=== PATIENT | female | born 1965 | race American Indian/Alaskan Native ===

== ENCOUNTER 2019-06-17 19:52 | Observation (INO) | payer MEDICAID ==
--- NOTE | 2019-06-17 21:39 | Event Note ---
ED Screening Note Date of service: 06/17/19 Time: 21:34 ED Screening Note: This is a 54 y.o. F. that presents to the ER with muscle aches and palpitations for 2 weeks. PMH of DM2, HTN, CHF, Afib, and asthma. States medtronic loop monitor went off today. Reports palpitations resolved. Denies chest pain, edema, SOB, wheezing, fever, or chills. This initial assessment/diagnostic orders/clinical plan/treatment(s) is/are subject to change based on patients health status, clinical progression and re- assessment by fellow clinical providers in the ED. Further treatment and workup at subsequent clinical providers discretion. Patient/guardian urged not to elope from the ED as their condition may be serious if not clinically assessed and managed. Initial orders include: Labs
[2019-06-17 22:27] LABS: Basophils # (Auto) 0.1 K/mm3 (0.0-0.1); Basophils % (Auto) 0.9 % (0.0-1.8); Eosinophils # (Auto) 0.3 K/mm3 (0.0-0.4); Hematocrit 32.8 % (30.3-42.9); Hemoglobin 10.8 gm/dl (10.1-14.3); Lymphocytes # (Auto) 2.9 K/mm3 (1.2-5.4); Lymphocytes % (Auto) 24.9 % (13.4-35.0); Mean Corpuscular HGB Conc 33 % (30-34); Mean Corpuscular Volume 77 fl (79-97); Monocytes # (Auto) 0.7 K/mm3 (0.0-0.8); Monocytes % (Auto) 5.8 % (0.0-7.3); Platelet Count 345 K/mm3 (140-440); Red Blood Count 4.28 M/mm3 (3.65-5.03)
[2019-06-17 22:33] LABS: BUN/Creatinine Ratio 16; Blood Urea Nitrogen 14 mg/dL (7-17); Calcium 6.8 mg/dL (8.4-10.2); Hemolysis Index 16
[2019-06-17] MEDS ORDERED: CALCIUM GLUCONATE 1,000 MG in SODIUM CHLORIDE 0.9% 100 ML IV ONE (23:01)
--- NOTE | 2019-06-17 23:05 | Emergency Department Report ---
ED General Adult HPI - General Chief complaint: Arrhythmia/Palpitations Stated complaint: CRAMPING BODY Time Seen by Provider: 06/17/19 21:34 Source: patient Mode of arrival: Ambulatory Limitations: No Limitations - History of Present Illness Initial comments: Generalized body cramps. Hx of thyroidectomy and hypocalcemia. Reports symptoms feel similar. Reports hx of a. fib and on xarelto. Reports compliant with medications. Reports hx hospitalization for hypocalcemia. - Related Data Home Medications Medication Instructions Recorded Confirmed Last Taken Loratadine (Nf) [Claritin (Nf)] 10 mg PO DAILY 10/24/14 10/24/14 10/24/14 Previous Rx's Medication Instructions Recorded Last Taken Type Bisacodyl [Dulcolax suppos] 10 mg NE QDAY PRN #20 supp.rect 10/27/14 Unknown Rx Ciprofloxacin HCl [Cipro] 500 mg PO Q12H #14 tab 10/27/14 Unknown Rx Docusate Sodium [Colace] 100 mg PO BID PRN #60 capsule 10/27/14 Unknown Rx Fluticasone [Flonase] 2 spray NS BID PRN #1 bottle 10/27/14 Unknown Rx Fluticasone/Salmeterol [Advair 1 puff IH BID #1 disk.w.dev 10/27/14 Unknown Rx Diskus 500-50 mcg] Furosemide [Lasix TAB] 80 mg PO DAILY #30 tablet 10/27/14 Unknown Rx Gabapentin 100 mg PO Q8HR #90 capsule 10/27/14 Unknown Rx HYDROcodone/APAP 10-325 [[place] 1 each PO Q6HR PRN #30 tablet 10/27/14 Unknown Rx 10/325] Ipratropium Carson [Atrovent Hfa] 12.9 gm IH Q6H PRN #1 hfa.aer.ad 10/27/14 Unknown Rx Lisinopril [Zestril TAB] 10 mg PO QDAY #30 tablet 10/27/14 Unknown Rx Methimazole [Tapazole] 10 mg PO DAILY #30 tablet 10/27/14 Unknown Rx Montelukast Sodium [Singulair] 10 mg PO DAILY #30 tablet 10/27/14 Unknown Rx Polyethylene Glycol 3350 [Miralax 17 gm PO BID PRN #30 powd.pack 10/27/14 Unknown Rx 3350] Prednisone [predniSONE 10 mg 10 mg PO .TAPER #1 tab.ds.pk 10/27/14 Unknown Rx (6-Day Pack, 21 Tabs)] carvediloL [Coreg] 3.125 mg PO BID #60 tablet 10/27/14 Unknown Rx Allergies Allergy/AdvReac Type Severity Reaction Status Date / Time aspirin Allergy Anaphylaxis Verified 10/24/14 17:21 cephalexin monohydrate Allergy Anaphylaxis Verified 10/24/14 17:21 [From Keflex] Fish Containing Products Allergy Anaphylaxis Verified 10/24/14 17:21 insulin detemir Allergy Rash Verified 06/17/19 19:55 [From Levemir U-100 Insulin] Penicillins Allergy Anaphylaxis Verified 10/24/14 17:21 ED Review of Systems ROS: Stated complaint: CRAMPING BODY Other details as noted in HPI Other: GENERAL: No weight change, fatigue, fever, chills, or night sweats SKIN: No changes in skin or hair, no itching, no rashes, no jaundice HEAD: No trauma EYES: No blurriness, tearing, itching, acute visual loss, conjunctival di scoloration, or scleral icterus EARS: No hearing loss, tinnitus, vertigo, or earache NOSE: No rhinorrhea, stuffiness, sneezing, itching, or epistaxis MOUTH: No bleeding gums, hoarseness, sore throat, or swelling CARDIAC: Palpitations. No new murmur, chest pain, dyspnea on exertion, orthopnea, PND, or edema RESPIRATORY: No shortness of breath, wheeze, cough, sputum production, hemoptysis GI: No abdominal pain, nausea, vomiting, dysphagia, diarrhea, constipation, hematemesis, melena, hematochezia URINARY: No frequency, urgency, polyuria, dysuria, hematuria, or incontinence MUSCULOSKELETAL: Generalized body cramps intermittent. No muscle weakness, joint stiffness, decrease in range of motion, redness, swelling NEUROLOGIC: No headache, syncope, loss of sensation, numbness, tingling, tremor s, weakness, paralysis, seizures HEMATOLOGIC: No anemia, easy bruising, bleeding, petechiae, or purpura ENDOCRINE: No hot or cold intolerance, sweating, polyuria, polydipsia or, polyphagia no thyroid problems PSYCHIATRIC: No change in mood, no anxiety, no depression ED Past Medical Hx - Past Medical History Previous Medical History?: Yes Hx Hypertension: Yes Hx Congestive Heart Failure: Yes (HISTORY) Hx Diabetes: Yes Hx Asthma: Yes Hx COPD: No Additional medical history: graves disease, Obesity, A-Fib - Surgical History Past Surgical History?: Yes Additional Surgical History: x 4, Thyroidectomy, EMILY MONITOR, Hysterectomy - Social History Smoking Status: Never Smoker Substance Use Type: None - Medications Home Medications: Home Medications Medication Instructions Recorded Confirmed Last Taken Type Loratadine (Nf) [Claritin (Nf)] 10 mg PO DAILY 10/24/14 10/24/14 10/24/14 History Bisacodyl [Dulcolax suppos] 10 mg NE QDAY PRN #20 supp.rect 10/27/14 Unknown Rx Ciprofloxacin HCl [Cipro] 500 mg PO Q12H #14 tab 10/27/14 Unknown Rx Docusate Sodium [Colace] 100 mg PO BID PRN #60 capsule 10/27/14 Unknown Rx Fluticasone [Flonase] 2 spray NS BID PRN #1 bottle 10/27/14 Unknown Rx Fluticasone/Salmeterol [Advair 1 puff IH BID #1 disk.w.dev 10/27/14 Unknown Rx Diskus 500-50 mcg] Furosemide [Lasix TAB] 80 mg PO DAILY #30 tablet 10/27/14 Unknown Rx Gabapentin 100 mg PO Q8HR #90 capsule 10/27/14 Unknown Rx HYDROcodone/APAP 10-325 [[place] 1 each PO Q6HR PRN #30 tablet 10/27/14 Unknown Rx 10/325] Ipratropium Carson [Atrovent Hfa] 12.9 gm IH Q6H PRN #1 hfa.aer.ad 10/27/14 Unknown Rx Lisinopril [Zestril TAB] 10 mg PO QDAY #30 tablet 10/27/14 Unknown Rx Methimazole [Tapazole] 10 mg PO DAILY #30 tablet 10/27/14 Unknown Rx Montelukast Sodium [Singulair] 10 mg PO DAILY #30 tablet 10/27/14 Unknown Rx Polyethylene Glycol 3350 [Miralax 17 gm PO BID PRN #30 powd.pack 10/27/14 Unknown Rx 3350] Prednisone [predniSONE 10 mg 10 mg PO .TAPER #1 tab.ds.pk 10/27/14 Unknown Rx (6-Day Pack, 21 Tabs)] carvediloL [Coreg] 3.125 mg PO BID #60 tablet 10/27/14 Unknown Rx ED Physical Exam - General Limitations: No Limitations - Other Other exam information: GENERAL: Patient in no acute distress HEAD: Normocephalic, atraumatic EYES: PERRLA, EOM intact, no scleral icterus, no conjunctival hemorrhage, visual higgins and acuity wnl NOSE: No tenderness, discharge, sinus tenderness MOUTH: No erythema, bleeding, exudate HEART: Regular rate and rhythm, no murmur, S1-S2 are auscultated, no edema, pulses are symmetric LUNGS: No respiratory distress. Bilateral breath sounds, No tachypnea, No retractions, No wheezing, rales, rhonchi ABDOMEN: Normal bowel sounds, abdomen soft, no tenderness, no rebound, no guarding, no distention, no masses, no CVA tenderness MUSCULOSKELETAL: Normal joint range of motion, no redness, no swelling, no tenderness NEUROLOGIC: GCS 15, Alert and Oriented x3, Cranial nerves intact, normal sensati on, normal strength, no cerebellar deficit, NIHSS 0 SKIN: Skin is warm and dry, no wounds, no rashes ED Course Vital Signs 06/17/19 06/17/19 06/17/19 20:06 22:31 22:36 Temperature 98.5 F Pulse Rate 85 83 Respiratory 16 16 20 Rate Blood Pressure 199/104 169/93 O2 Sat by Pulse 99 96 99 Oximetry ED Medical Decision Making - Lab Data Result diagrams: 06/17/19 21:47 06/17/19 21:47 Laboratory Results - last 24 hr 06/17/19 06/17/19 06/17/19 21:47 21:47 21:47 WBC 11.7 H RBC 4.28 Hgb 10.8 Hct 32.8 MCV 77 L MCH 25 L MCHC 33 RDW 16.0 H Plt Count 345 Lymph % (Auto) 24.9 Bandera % (Auto) 5.8 Eos % (Auto) 3.0 Baso % (Auto) 0.9 Lymph # 2.9 Bandera # 0.7 Eos # 0.3 Baso # 0.1 Seg Neutrophils % 65.4 Seg Neutrophils # 7.7 Sodium 139 Potassium 3.5 L Chloride 95.7 L Carbon Dioxide 26 Anion Gap 21 BUN 14 Creatinine 0.9 Estimated GFR > 60 BUN/Creatinine Ratio 16 Glucose 194 H Calcium 6.8 L Magnesium 1.70 - Medical Decision Making Patient comfortable. Plan admit for further evaluation. Hospitalist updated and accepts admission. Critical care attestation.: If time is entered above; I have spent that time in minutes in the direct care of this critically ill patient, excluding procedure time. ED Disposition Clinical Impression: Hypocalcemia Disposition: OP ADMIT IP TO THIS HOSP Is pt being admited?: Yes Condition: Stable Time of Disposition: 23:05
[2019-06-17] MEDS ORDERED: ACETAMINOPHEN 325 MG TAB PO PRN (23:37)
[2019-06-17] MEDS ORDERED: MORPHINE 2 MG/1 ML INJ IV PRN (23:37)
[2019-06-17] MEDS ORDERED: ONDANSETRON 4 MG/2 ML INJ IV PRN (23:37)
[2019-06-17] MEDS ORDERED: DEXTROSE 50% IN WATER (25GM) 50 ML SYRINGE IV PRN (23:37)
[2019-06-17] MEDS ORDERED: MAGNESIUM HYDROXIDE (MOM) ORAL LIQD UDC PO PRN (23:37)
[2019-06-17] MEDS ORDERED: SODIUM CHLORIDE 0.9% 1000 ML 1,000 ML IV SCH (23:45)
[2019-06-18] MEDS ORDERED: hydrALAZINE 20 MG/1 ML INJ IV PRN (01:14)
[2019-06-18] MEDS ORDERED: hydrALAZINE 20 MG/1 ML INJ IV ONE (01:15)
--- NOTE | 2019-06-18 02:12 | History and Physical Report ---
History of Present Illness Date of examination: 06/17/19 Date of admission: 06/17/19 23:37 Chief complaint: Muscle cramping Facial twitching History of present illness: 54-year-old female known history of hypertension, CHF, atrial fibrillation presented to the emergency room today complaining of muscle cramps. She has also had some twitching on her cheeks. She denies any headache or dizziness, no fever or chills, no nausea vomiting. Upon evaluation in the emergency room she was found to be hypocalcemic. She was given some IV calcium gluconate. Past History Past Medical History: atrial fib, hypertension, other (Grave's disease, obesity) Past Surgical History: , thyroidectomy, hysterectomy Social history: no significant social history Family history: no significant family history Medications and Allergies Allergies Allergy/AdvReac Type Severity Reaction Status Date / Time aspirin Allergy Anaphylaxis Verified 10/24/14 17:21 cephalexin monohydrate Allergy Anaphylaxis Verified 10/24/14 17:21 [From Keflex] Fish Containing Products Allergy Anaphylaxis Verified 10/24/14 17:21 insulin detemir Allergy Rash Verified 06/17/19 19:55 [From Levemir U-100 Insulin] Penicillins Allergy Anaphylaxis Verified 10/24/14 17:21 Home Medications Medication Instructions Recorded Confirmed Last Taken Type Fluticasone [Flonase] 2 spray NS BID PRN #1 bottle 10/27/14 06/18/19 Unknown Rx Montelukast Sodium [Singulair] 10 mg PO DAILY #30 tablet 10/27/14 06/18/19 Unknown Rx ALBUTEROL Inhaler (OR & NICU) 2 puff IH QID PRN 06/18/19 06/18/19 Unknown History [ProAir HFA Inhaler] Budesonide/Formoterol Fumarate 2 puff IH DAILY 06/18/19 06/18/19 Unknown History [Symbicort 160-4.5 Mcg Inhaler] Calcitriol [Rocaltrol] 1 mcg PO QDAY 06/18/19 06/18/19 Unknown History Cholecalciferol (Vitamin D3) 2,000 unit PO QDAY 06/18/19 06/18/19 Unknown History [Vitamin D3 2,000 UNIT CAP] Estradiol 0.5 mg PO DAILY 06/18/19 06/18/19 Unknown History Famotidine [Pepcid] 20 mg PO BID 06/18/19 06/18/19 Unknown History Fluticasone/Salmeterol [Advair 2 puff IH BID 06/18/19 06/18/19 Unknown History Diskus 500-50 mcg] Gabapentin 300 mg PO BID 06/18/19 06/18/19 Unknown History Insulin Glargine,Hum.rec.anlog 10 unit SQ DAILY 06/18/19 06/18/19 Unknown History [Lantus Solostar] Metoprolol Tartrate [Lopressor] 50 mg PO BID 06/18/19 06/18/19 Unknown History Potassium Chloride [K-Dur] 10 meq PO QDAY 06/18/19 06/18/19 Unknown History Rivaroxaban [Xarelto] 20 mg PO QDAY 06/18/19 06/18/19 Unknown History amLODIPine 10 mg PO BID 06/18/19 06/18/19 Unknown History hydrALAZINE [Apresoline TAB] 10 mg PO BID 06/18/19 06/18/19 Unknown History Active Meds: Active Medications Acetaminophen (Tylenol) 650 mg PO Q4H PRN PRN Reason: Pain MILD(1-3)/Fever >100.5/SAEZ Dextrose (D50w (25gm) Syringe) 50 ml IV Q30MIN PRN; Protocol PRN Reason: Hypoglycemia Hydralazine HCl (Apresoline) 10 mg IV Q4H PRN PRN Reason: Hypertension Sodium Chloride (Nacl 0.9% 1000 Ml) 1,000 mls @ 75 mls/hr IV DIRECT RICHI Magnesium Hydroxide (Milk Of Magnesia) 30 ml PO Q4H PRN PRN Reason: Constipation Morphine Sulfate (Morphine) 2 mg IV Q4H PRN PRN Reason: Pain, Moderate (4-6) Ondansetron HCl (Zofran) 4 mg IV Q8H PRN PRN Reason: Nausea And Vomiting Sodium Chloride (Sodium Chloride Flush Syringe 10 Ml) 10 ml IV BID RICHI Sodium Chloride (Sodium Chloride Flush Syringe 10 Ml) 10 ml IV PRN PRN PRN Reason: LINE FLUSH Review of Systems Musculoskeletal: muscle cramps Neurological: tingling Exam - Constitutional Vitals: Temp Pulse Resp BP Pulse Ox 98.5 F 71 17 182/100 95 06/17/19 20:06 06/18/19 01:26 06/18/19 00:58 06/18/19 01:26 06/18/19 00:58 General appearance: Present: no acute distress, well-nourished - EENT Eyes: Present: PERRL, EOM intact ENT: hearing intact, clear oral mucosa, dentition normal - Neck Neck: Present: supple, normal ROM - Respiratory Respiratory effort: normal Respiratory: bilateral: CTA - Cardiovascular Rhythm: regular Heart Sounds: Present: S1 & S2 - Extremities Extremities: no ischemia, pulses intact, No edema Peripheral Pulses: within normal limits - Abdominal General gastrointestinal: Present: soft, non-tender, non-distended, normal bowel sounds - Integumentary Integumentary: Present: clear, warm, dry - Musculoskeletal Musculoskeletal: strength equal bilaterally - Psychiatric Psychiatric: appropriate mood/affect, intact judgment & insight, cooperative - Neurologic Neurologic: CNII-XII intact, moves all extremities Results - Labs CBC & Chem 7: 06/18/19 05:04 06/18/19 05:04 Labs: Abnormal lab results 06/17/19 06/17/19 Range/Units 21:47 21:47 WBC 11.7 H (4.5-11.0) K/mm3 MCV 77 L (79-97) fl MCH 25 L (28-32) pg RDW 16.0 H (13.2-15.2) % Potassium 3.5 L (3.6-5.0) mmol/L Chloride 95.7 L (98-107) mmol/L Glucose 194 H (65-100) mg/dL Calcium 6.8 L (8.4-10.2) mg/dL Assessment and Plan - Patient Problems (1) Hypocalcemia Current Visit: Yes Status: Acute Plan to address problem: Patient has been placed on IV calcium gluconate. Will monitor calcium levels. (2) Morbid obesity with BMI of 50.0-59.9, adult Current Visit: No Status: Chronic (3) History of atrial fibrillation Current Visit: Yes Status: Acute Plan to address problem: Rate is controlled. Patient on beta-maricruz. (4) DVT prophylaxis Current Visit: Yes Status: Acute Plan to address problem: Patient placed on subcutaneous heparin. (5) Full code status Current Visit: Yes Status: Acute
[2019-06-18 05:41] LABS: Basophils # (Auto) 0.1 K/mm3 (0.0-0.1); Eosinophils # (Auto) 0.3 K/mm3 (0.0-0.4); Hematocrit 32.6 % (30.3-42.9); Hemoglobin 10.6 gm/dl (10.1-14.3); Lymphocytes # (Auto) 2.8 K/mm3 (1.2-5.4); Lymphocytes % (Auto) 26.7 % (13.4-35.0); Mean Corpuscular HGB Conc 33 % (30-34); Mean Corpuscular Volume 76 fl (79-97); Monocytes # (Auto) 0.6 K/mm3 (0.0-0.8); Monocytes % (Auto) 5.7 % (0.0-7.3); Platelet Count 307 K/mm3 (140-440); Red Blood Count 4.32 M/mm3 (3.65-5.03); Red Cell Distribution Width 16.7 % (13.2-15.2)
[2019-06-18 05:52] LABS: INR 0.84 (0.87-1.13)
[2019-06-18 05:53] LABS: Partial Thromboplastin Time 34.8 Sec. (24.2-36.6)
[2019-06-18 06:04] LABS: BUN/Creatinine Ratio 16; Blood Urea Nitrogen 11 mg/dL (7-17); Hemolysis Index 2
[2019-06-18] MEDS ORDERED: POTASSIUM CHLORIDE ER 20 MEQ TAB PO ONE (09:57)
[2019-06-18] MEDS ORDERED: FLUTICASONE PROPIONATE NASAL SPRAY 16 GM NS PRN (09:59)
[2019-06-18] MEDS ORDERED: ALBUTEROL 8.5 GM INHALATION IH PRN (09:59)
[2019-06-18] MEDS ORDERED: INSULIN GLARGINE HUM REC ANLOG 10 UNIT SQ SCH (10:00)
[2019-06-18] MEDS ORDERED: NON-FORMULARY EACH (Budesonide/Formoterol Fumarate [Symbicort 160-4.5 Mcg Inhaler] 2 PUFF) IH SCH (10:00)
[2019-06-18] MEDS ORDERED: NON-FORMULARY EACH (Cholecalciferol (Vitamin D3) [Vitamin D3 2,000 Unit Cap] 2,000 UNIT) PO SCH (10:00)
[2019-06-18] MEDS ORDERED: ALBUTEROL 2.5 MG/3 ML NEBU IH PRN (10:48)
[2019-06-18 11:22] VITALS: BP 124/73
[2019-06-18] MEDS ORDERED: FAMOTIDINE 20 MG TAB PO SCH (12:00)
[2019-06-18] MEDS ORDERED: RIVAROXABAN 20 MG TAB PO SCH (12:00)
[2019-06-18] MEDS ORDERED: hydrALAZINE 10 MG TAB PO SCH (12:00)
[2019-06-18] MEDS ORDERED: CALCIUM CARBONATE 1250 MG TAB PO SCH (12:00)
[2019-06-18] MEDS ORDERED: amLODIPine 10 MG TAB PO SCH (12:00)
[2019-06-18] MEDS ORDERED: CHOLECALCIFEROL (VIT D3) 1000 UNIT TAB PO SCH (12:00)
[2019-06-18] MEDS ORDERED: CALCITRIOL 0.5 MCG CAP PO SCH (12:00)
[2019-06-18] MEDS ORDERED: GABAPENTIN 300 MG CAP PO SCH (12:00)
[2019-06-18] MEDS ORDERED: METOPROLOL TARTRATE 50 MG TAB PO SCH (12:00)
[2019-06-18] MEDS ORDERED: MONTELUKAST 10 MG TAB PO SCH (12:00)
[2019-06-18] MEDS ORDERED: POTASSIUM CHLORIDE ER 10 MEQ TAB PO SCH (12:00)
--- NOTE | 2019-06-18 12:52 | Discharge Summary ---
Providers - Providers Date of Admission: 06/17/19 23:37 Date of discharge: 06/18/19 Attending physician: RACHEL CORONEL 06/18/19 11:00 Physical Therapy Evaluation and Treat [CONS] Routine Comment: Reason For Exam: placement Primary care physician: [facility] Hospitalization Condition: Stable Hospital course: Discharge Diagnosis: / Hypocalcemia Patient has been placed on IV calcium gluconate. Now placed on oral supplement /hypokalemia, repleted /Morbid obesity with BMI of 50.0-59.9, adult outpt f/u for diet and exercise recommendation / History of atrial fibrillation Rate is controlled. Patient on beta-maricruz and xarelto. /h/o graves disease, cont outpt f/u /H/o asthma, stable Disposition: DC-01 TO HOME OR SELFCARE Time spent for discharge: 34 minutes Core Measure Documentation - Palliative Care Palliative Care/ Comfort Measures: Not Applicable - Core Measures Any of the following diagnoses?: none Exam - Constitutional Vitals: Temp Pulse Resp BP Pulse Ox 98.2 F 77 18 124/73 97 06/18/19 07:54 06/18/19 11:54 06/18/19 07:54 06/18/19 11:54 06/18/19 11:54 General appearance: Present: no acute distress, well-nourished, obese - EENT Eyes: Present: PERRL ENT: hearing intact, clear oral mucosa - Neck Neck: Present: supple, normal ROM - Respiratory Respiratory effort: normal Respiratory: bilateral: CTA - Cardiovascular Heart Sounds: Present: S1 & S2. Absent: rub, click - Extremities Extremities: pulses symmetrical, No edema Peripheral Pulses: within normal limits - Abdominal General gastrointestinal: Present: soft, non-tender, non-distended, normal bowel sounds - Integumentary Integumentary: Present: clear, warm, dry - Musculoskeletal Musculoskeletal: gait normal, strength equal bilaterally - Psychiatric Psychiatric: appropriate mood/affect, intact judgment & insight - Neurologic Neurologic: CNII-XII intact, moves all extremities Plan Activity: advance as tolerated Weight Bearing Status: Weight Bear as Tolerated Diet: low fat, low salt Additional Instructions: f/u PTH and Vit D level Follow up with: LEONCIO GAGNON MD [Primary Care Provider] - 7 Days Prescriptions: Calcium Carbonate [Oscal 1250MG TAB] 1,250 mg PO BID #60 tablet Cholecalciferol Vit D3 [Vitamin D3 1,000 UNIT TAB] 2,000 unit PO QDAY #30 tablet
[2019-06-18] MEDS ORDERED: HEPARIN 5,000 UNIT/1 ML VIAL SUB-Q SCH (14:00)
[2019-06-18] MEDS ORDERED: ARFORMOTEROL 15 MCG/2 ML NEBU IH SCH (20:00)
[2019-06-18] MEDS ORDERED: BUDESONIDE 0.5 MG/2 ML NEBU IH SCH (20:00)
[2019-06-18] MEDS ORDERED: INSULIN GLARGINE 100 UNITS/ML SUB-Q SCH (22:00)
[2019-06-19] MEDS ORDERED: FLU VACC QUAD 2019-20 (3 YR UP)/PF 60 MCG/0.5 ML SYRINGE IM ONE (12:00)
== END 2019-06-18 17:14 | disposition home or self-care (01) ==
LOC: ED 19:52 → 4A 23:37
PROVIDERS: ADMIT Internal Medicine Geriatric Medicine; ATTEND Internal Medicine
DX: E83.51 Hypocalcemia (principal); E66.01 Morbid (severe) obesity due to excess calories; I48.91 Unspecified atrial fibrillation; Z68.43 Body mass index [BMI] 50.0-59.9, adult; Z90.710 Acquired absence of both cervix and uterus; Z90.49 Acquired absence of other specified parts of digestive tract; Z98.891 History of uterine scar from previous surgery
CPT/HCPCS: 36415; 80048; 82962; 83735; 84132; 85025; 85610; 85730; 93005; 93010; 96374; 96375; 99284; G0378; J0360; J0610; J2270; J2405; J7030; J1815